=== PATIENT | female | born 1955 | race Caucasian/White ===

== ENCOUNTER 2017-12-05 15:11 | Observation (INO) | payer MEDICARE, OTHER ==
[2017-12-05] MEDS ORDERED: SODIUM CHLORIDE 0.9% 1,000 ML IV STA (15:55)
[2017-12-05] MEDS ORDERED: LORazepam 2 MG/ML INJ IV PRN ×2 (15:55)
[2017-12-05] MEDS ORDERED: SODIUM CHLORIDE 0.9% 1,000 ML with MVI, ADULT NO.4 WITH VIT K 10 ML, THIAMINE 100 MG, F... IV ONE ×4 (15:56)
--- NOTE | 2017-12-05 16:02 | ED ---
General Adult HPI <Zane Alamo - Last Filed: 12/05/17 17:22> - General Source: patient, family, RN notes reviewed Mode of arrival: wheelchair Limitations: no limitations <Cm Yadav - Last Filed: 12/05/17 17:28> - General Chief complaint: Psychiatric Symptoms Stated complaint: ETOH Time Seen by Provider: 12/05/17 15:42 - History of Present Illness Initial comments: Patient 62-year-old female presenting to the emergency room today with a chief complaint of suicidal ideation. Patient does admit that she was drinking earlier today. She admits to being a daily drinker. Patient states that she was set after seeing her mother here in the hospital. Patient has had thoughts of hurting herself. States that she thought about taking pills. Patient denies any homicidal thoughts or plans. Denies any other physical complaints. Patient denies any recent fever, chills, shortness of breath, chest pain, back pain, abdominal pain, nausea or vomiting, headaches or visual changes, or any other complaints. (Cm Yadav) - Related Data Home Medications Medication Instructions Recorded Confirmed Unable To Assess [Unable to Assess] 08/31/15 12/05/17 Allergies Allergy/AdvReac Type Severity Reaction Status Date / Time No Known Allergies Allergy Verified 12/05/17 15:20 Review of Systems ROS Other: All systems not noted in ROS Statement are negative. <Zane Alamo - Last Filed: 12/05/17 17:22> ROS Other: All systems not noted in ROS Statement are negative. <Cm Yadav - Last Filed: 12/05/17 17:28> ROS Statement: Those systems with pertinent positive or pertinent negative responses have been documented in the HPI. Past Medical History Past Medical History: Coronary Artery Disease (CAD), Diabetes Mellitus, Thyroid Disorder Additional Past Medical History / Comment(s): Pancreatitits History of Any Multi-Drug Resistant Organisms: None Reported Past Surgical History: Coronary Bypass/CABG, Hysterectomy Past Psychological History: Anxiety, Depression Smoking Status: Current some day smoker Past Alcohol Use History: Abuse, Daily Past Drug Use History: None Reported <Cm Yadav - Last Filed: 12/05/17 17:28> General Exam <Zane Alamo - Last Filed: 12/05/17 17:22> Limitations: no limitations <Cm Yadav - Last Filed: 12/05/17 17:28> - General Exam Comments Initial Comments: General: The patient is awake and alert, in no distress, and does not appear acutely ill. Intoxicated. Eye: Pupils are equal, round and reactive to light, extra-ocular movements are intact. No nystagmus. There is normal conjunctiva bilaterally. No signs of icterus. Ears, nose, mouth and throat: There are moist mucous membranes and no oral lesions. Neck: The neck is supple, there is no tenderness or JVD. Cardiovascular: There is a regular rate and rhythm. No murmur, rub or gallop is appreciated. Respiratory: Lungs are clear to auscultation, respirations are non-labored, breath sounds are equal. No wheezes, stridor, rales, or rhonchi. Gastrointestinal: Soft, non-distended, non-tender abdomen without masses or organomegaly noted. There is no rebound or guarding present. No CVA tenderness. Musculoskeletal: Normal ROM, no tenderness. Sensation intact. Pulses equal bilaterally 2+. Neurological: A&O x 3. CN II-XII intact, There are no obvious motor or sensory deficits. Coordination appears grossly intact. Speech is normal. Skin: Skin is warm and dry and no rashes or lesions are noted. Psychiatric: Cooperative. Intoxicated. (Cm Yadav) Course <Zane Alamo - Last Filed: 12/05/17 17:22> <Cm Yadav - Last Filed: 12/05/17 17:28> Vital Signs 12/05/17 15:18 Temperature 98.3 F Pulse Rate 90 Respiratory 18 Rate Blood Pressure 93/60 O2 Sat by Pulse 94 L Oximetry - Reevaluation(s) Reevaluation #1: 12/05/17 17:22 PA supervision: I personally saw and examined the patient I reviewed and agree with the PA findings including all diagnostic interpretations and treatment plans is written unless otherwise stated I did discuss the case with Dr. English. (Zane Alamo) Medical Decision Making - Lab Data Result diagrams: 12/05/17 16:25 12/05/17 16:25 <Zane Alamo - Last Filed: 12/05/17 17:22> - Lab Data Result diagrams: 12/05/17 16:25 12/05/17 16:25 <Cm Yadav - Last Filed: 12/05/17 17:28> - Medical Decision Making Patient's labs been reviewed. Patient's alcohol level 371. Patient does have elevated liver enzymes. Patient will be admitted to hospital for alcohol withdrawal and for suicidal ideation consult psychiatry. (Cm Yadav) - Lab Data Lab Results 12/05/17 12/05/17 12/05/17 Range/Units 16:25 16:25 16:25 WBC 7.7 (3.8-10.6) k/uL RBC 3.81 (3.80-5.40) m/uL Hgb 10.7 L (11.4-16.0) gm/dL Hct 32.9 L (34.0-46.0) % MCV 86.4 (80.0-100.0) fL MCH 28.1 (25.0-35.0) pg MCHC 32.6 (31.0-37.0) g/dL RDW 17.0 H (11.5-15.5) % Plt Count 156 (150-450) k/uL Neutrophils % 57 % Lymphocytes % 34 % Monocytes % 4 % Eosinophils % 2 % Basophils % 1 % Neutrophils # 4.4 (1.3-7.7) k/uL Lymphocytes # 2.7 (1.0-4.8) k/uL Monocytes # 0.3 (0-1.0) k/uL Eosinophils # 0.2 (0-0.7) k/uL Basophils # 0.1 (0-0.2) k/uL Anisocytosis Slight PT 10.8 (9.0-12.0) sec INR 1.1 (<1.2) APTT 23.8 (22.0-30.0) sec Sodium 141 (137-145) mmol/L Potassium 4.1 (3.5-5.1) mmol/L Chloride 103 (98-107) mmol/L Carbon Dioxide 18 L (22-30) mmol/L Anion Gap 20 mmol/L BUN 23 H (7-17) mg/dL Creatinine 1.30 H (0.52-1.04) mg/dL Est GFR (CKD-EPI)AfAm 50 (>60 ml/min/1.73 sqM) Est GFR (CKD-EPI)NonAf 44 (>60 ml/min/1.73 sqM) Glucose 147 H (74-99) mg/dL Calcium 10.3 H (8.4-10.2) mg/dL Total Bilirubin 0.7 (0.2-1.3) mg/dL AST 154 H (14-36) U/L ALT 98 H (9-52) U/L Alkaline Phosphatase 130 H (38-126) U/L Total Protein 7.8 (6.3-8.2) g/dL Albumin 4.9 (3.5-5.0) g/dL Lipase 312 H (23-300) U/L Serum Alcohol 371 mg/dL Disposition <Zane Alamo - Last Filed: 12/05/17 17:22> Is patient prescribed a controlled substance at d/c from ED?: No Time of Disposition: 17:04 <Cm Yadav - Last Filed: 12/05/17 17:28> Clinical Impression: Suicidal ideation, Alcohol withdrawal Disposition: ADMITTED IP TO THIS HOSP Condition: Stable Referrals: Jaci Lloyd MD [Primary Care Provider] - 1-2 days
[2017-12-05 16:36] LABS: Anisocytosis Slight; Basophils # (A) 0.1 k/uL (0-0.2); Basophils % (A) 1 %; Eosinophils # (A) 0.2 k/uL (0-0.7); Eosinophils % (A) 2 %; HCT 32.9 % (34.0-46.0); HGB 10.7 gm/dL (11.4-16.0); Lymphocytes # (A) 2.7 k/uL (1.0-4.8); Lymphocytes % (A) 34 %; MCH 28.1 pg (25.0-35.0); MCHC 32.6 g/dL (31.0-37.0); MCV 86.4 fL (80.0-100.0); Mean Platelet Volume 7.6; Monocytes # (A) 0.3 k/uL (0-1.0); Monocytes % (A) 4 %; Neutrophils # (A) 4.4 k/uL (1.3-7.7); Neutrophils % (A) 57 %; Platelet Count 156 k/uL (150-450); RBC 3.81 m/uL (3.80-5.40); WBC 7.7 k/uL (3.8-10.6)
[2017-12-05 16:41] LABS: INR 1.1 (<1.2); Partial Thromboplastin Time 23.8 sec (22.0-30.0); Prothrombin Time 10.8 sec (9.0-12.0)
[2017-12-05 16:42] LABS: Albumin 4.9 g/dL (3.5-5.0); Calcium 10.3 mg/dL (8.4-10.2); Potassium 4.1 mmol/L (3.5-5.1); Total Bilirubin 0.7 mg/dL (0.2-1.3); Total Protein 7.8 g/dL (6.3-8.2)
[2017-12-05] MEDS ORDERED: ACETAMINOPHEN TAB 325 MG TAB PO PRN (17:28)
[2017-12-05] MEDS ORDERED: ONDANSETRON 4 MG/2 ML VIAL IVP PRN (17:28)
[2017-12-05] MEDS ORDERED: NALOXONE 0.4 MG/ML 1 ML VIAL IV PRN (17:28)
[2017-12-05 18:56] VITALS: BMI 28.4
[2017-12-05] MEDS: THIAMINE 100 MG TAB PO SCH (18:58)
[2017-12-05 20:38] LABS: Glucose,Whole Blood 176 mg/dL (75-99)
[2017-12-05 20:53] LABS: Appearance,Urine Clear (Clear); Bilirubin,Urine Negative (Negative); Blood,Urine Negative (Negative); Color,Urine Light Yellow; Glucose,Urine (UA) Negative (Negative); Ketones,Urine Negative (Negative); Leukocyte Esterase,Urine Negative (Negative); Nitrite,Urine Negative (Negative); Protein,Urine Negative (Negative); Specific Gravity,Urine 1.003 (1.001-1.035); Urobilinogen,Urine <2.0 mg/dL (<2.0)
[2017-12-05] MEDS: LORazepam 2 MG/ML INJ IV PRN (21:53)
[2017-12-06] MEDS: LORazepam 2 MG/ML INJ IV PRN ×4 (01:15→22:49)
[2017-12-06 07:11] LABS: Glucose,Whole Blood 206 mg/dL (75-99)
[2017-12-06] MEDS: THIAMINE 100 MG TAB PO SCH ×2 (11:32→16:25)
--- NOTE | 2017-12-06 15:05 | P.HPIM ---
History of Present Illness H&P Date: 12/06/17 Darlene Lopez is a 62-year-old female who presented to [facility] emergency room with a chief complaint of suicidal ideation. Patient stated that she was upset because her mother was in the hospital. She stated that she was drinking alcohol. She admits that she is an alcoholic, she started having some suicidal ideation and she thought about taking a bunch of pills but decided instead to come to emergency room to ask for help. She was evaluated in emergency room her alcohol level was significantly elevated she was admitted to medical floor and psychiatry consultation was requested. She was started on the CIWA protocol. Patient was seen and evaluated on 12/06/2017, she is alert and oriented 3 there is no evidence of agitation or tremors at this time she stated that she was thinking of committing suicide due to drinking a lot of alcohol. She admits that she is an alcoholic and is willing to accept help. She denies any other symptoms at this time, she denies thinking of committing suicide at this time, she denies having any fever or chills no headache or dizziness no chest pain no shortness of breath no cough no nausea or vomiting no abdominal pain no diarrhea no burning with urination no frequency or urgency and no hematuria. Past Medical History Past Medical History: Coronary Artery Disease (CAD), Diabetes Mellitus, Thyroid Disorder Additional Past Medical History / Comment(s): Pancreatitits History of Any Multi-Drug Resistant Organisms: None Reported Past Surgical History: Coronary Bypass/CABG, Hysterectomy Past Psychological History: Anxiety, Depression Smoking Status: Former smoker Past Alcohol Use History: Abuse, Daily Past Drug Use History: None Reported - Past Family History Mother Family Medical History: Dementia Medications and Allergies Home Medications Medication Instructions Recorded Confirmed Type Allopurinol [Zyloprim] 300 mg PO DAILY 12/06/17 12/06/17 History Escitalopram [Lexapro] 20 mg PO DAILY 12/06/17 12/06/17 History Fenofibrate Nanocrystallized 145 mg PO DAILY 12/06/17 12/06/17 History [Fenofibrate] Omeprazole [PriLOSEC] 20 mg PO AC-BRKFST 12/06/17 12/06/17 History metFORMIN HCL [Glucophage] 500 mg PO BID 12/06/17 12/06/17 History Allergies Allergy/AdvReac Type Severity Reaction Status Date / Time No Known Allergies Allergy Verified 12/05/17 17:32 Physical Exam Vitals: Vital Signs Temp Pulse Pulse Resp BP BP Pulse Ox 12/06/17 06:46 98.2 F 105 H 16 165/72 96 12/05/17 23:00 99.5 F 101 H 20 114/48 91 L 12/05/17 17:57 98.7 F 83 16 92/50 98 12/05/17 15:18 98.3 F 90 18 93/60 94 L Intake and Output 12/05/17 12/06/17 12/06/17 22:59 06:59 14:59 Intake Total 600 200 240 Output Total 1400 Balance -800 200 240 Intake: Oral 600 200 240 Output: Urine 1400 Other: # Voids 1 # Bowel Movements 1 Weight 77.5 kg In general patient is alert and oriented 3 in no apparent distress HEENT head normocephalic and atraumatic Neck is supple no JVD no goiter no lymphadenopathy Chest exam reveals a few scattered crackles no wheezing Cardiac exam reveals regular heart sounds no gallops no murmurs Abdomen is soft nontender no organomegaly with normal bowel sounds Extremity exam reveals no edema no cyanosis or clubbing Neurological examination reveals no gross focal deficit Results CBC & Chem 7: 12/05/17 16:25 12/05/17 16:25 Labs: Abnormal Lab Results - Last 24 Hours (Table) 12/05/17 12/05/17 12/05/17 Range/Units 16:25 16:25 20:28 Hgb 10.7 L (11.4-16.0) gm/dL Hct 32.9 L (34.0-46.0) % RDW 17.0 H (11.5-15.5) % Carbon Dioxide 18 L (22-30) mmol/L BUN 23 H (7-17) mg/dL Creatinine 1.30 H (0.52-1.04) mg/dL Glucose 147 H (74-99) mg/dL POC Glucose (mg/dL) 176 H (75-99) mg/dL Calcium 10.3 H (8.4-10.2) mg/dL AST 154 H (14-36) U/L ALT 98 H (9-52) U/L Alkaline Phosphatase 130 H (38-126) U/L Lipase 312 H (23-300) U/L 12/06/17 Range/Units 06:51 Hgb (11.4-16.0) gm/dL Hct (34.0-46.0) % RDW (11.5-15.5) % Carbon Dioxide (22-30) mmol/L BUN (7-17) mg/dL Creatinine (0.52-1.04) mg/dL Glucose (74-99) mg/dL POC Glucose (mg/dL) 206 H (75-99) mg/dL Calcium (8.4-10.2) mg/dL AST (14-36) U/L ALT (9-52) U/L Alkaline Phosphatase (38-126) U/L Lipase (23-300) U/L Thrombosis Risk Factor Assmnt - Choose All That Apply Any of the Below Risk Factors Present?: Yes Each Factor Represents 1 point: Obesity (BMI >25) Other Risk Factors: Yes Each Risk Factor Represents 2 Points: Age 61-74 years Thrombosis Risk Factor Assessment Total Risk Factor Score: 3 Thrombosis Risk Factor Assessment Level: Moderate Risk Assessment and Plan Plan: #1 suicidal ideation #2 underlying history of ethanol abuse #3 underlying history of coronary artery disease #4 underlying history of diabetes mellitus #5 underlying history of hypothyroidism #6 previous history of acute pancreatitis in the past #7 tobacco abuse #8 underlying history of depression and anxiety At this time continue with current management continue Ativan awaiting psychiatry input Medication reviewed and reordered patient counseled in regard to alcohol and tobacco abuse
[2017-12-06] MEDS: FENOFIBRATE 160 MG TAB PO SCH (16:23)
[2017-12-06] MEDS: ALLOPURINOL 300 MG TAB PO SCH (16:23)
[2017-12-06] MEDS: ESCITALOPRAM 20 MG TAB PO SCH (16:23)
[2017-12-06 17:23] LABS: Glucose,Whole Blood 143 mg/dL (75-99)
[2017-12-06] MEDS: INSULIN ASPART 100 UNIT/ML 1 ML 10 ML VIAL SQ SCH ×2 (18:06→21:06)
--- NOTE | 2017-12-06 18:56 | CONS ---
CONSULTATION DATE OF SERVICE: 12/06/2017. IDENTIFYING DATA: This patient is a 62-year-old female who was admitted to the hospital after presenting acutely intoxicated with alcohol and making suicidal statements. HISTORY OF PRESENT ILLNESS: The patient was admitted to the medical floor as she presented with a serum alcohol level of 371 in the emergency room. Apparently, the patient had made statements of wanting to kill herself and that she could do it by overdosing. The patient is now sober and she states that she does not remember what she was saying yesterday and although she has been struggling with some depressive symptoms, states that she does not have any suicidal ideation, intent, or plan. She states that she could never do that to her family. She states that she has an alcohol problem and her excessive alcohol use makes her mood worse. She describes herself as being more tearful. Appetite is perfectly stable. Sleep has been stable. She endorses no hopeless thinking and does think that she made the right decisions her situation could improve. She is endorsing no significant anxiety symptoms. She endorses no history of hypomania or cheko. She is reporting no auditory or visual hallucinations or any specific delusions. She resides with her in their own home and she states they have no firearms at home. PAST PSYCHIATRIC HISTORY: She had 2 inpatient admissions that she states were alcohol related more than 15 years ago. She denies any history of suicide attempt or any type of self-injurious behavior. She is currently prescribed Lexapro 20 mg daily. She has been on this for quite some time, as prescribed by her primary care physician. She believes she may have been on Paxil in the past. PAST MEDICAL HISTORY: Coronary artery disease, status post CABG, diabetes, hypothyroidism, history of pancreatitis and gout. ALLERGIES: No known drug allergies. CHEMICAL DEPENDENCY HISTORY: She has been abusing alcohol in a binge drinking fashion for numerous years. She states that she often will go 3-4 days consuming excessive amount of alcohol. She states lately she has been drinking over a 5th of liquor. Her longest sobriety was approximately 3-4 months and that was 2 years ago. She denies any use of any other illicit drugs. She has never been placed in residential treatment for chemical dependency reasons. She states she cannot attend inpatient chemical dependency treatment as she provides partial care for her mother. SOCIAL HISTORY: The patient is 62 years old. She has been for over 20 years. She has no children. She lives with her . She is on a disability income. She previously was employed doing retail work and factory type work. She has an 8th grade education. No history of service. MENTAL STATUS EXAM: The patient is a female appearing her stated age. She is lying in bed. She is dressed in hospital attire. She is pleasant upon approach. She describes a depressed mood and feelings of embarrassment due to statements that she made last evening while intoxicated. She verbalizes that she knows she should stop drinking. She states that she has no suicidal or homicidal ideation, intent, or plan. She is reporting no auditory or visual hallucinations or any specific delusions. She demonstrates no tangential thinking, loose associations or flight of ideas. She does not appear hypomanic or manic. She is oriented to person, place, and date. She appropriately attends to the conversation. She demonstrates no verbal or physical aggressiveness and demonstrates no abnormal involuntary movements. Affect is congruent to reported mood. She is briefly tearful and then reconstitutes. IMPRESSIONS: 1. Major depressive disorder, recurrent, alcohol use disorder. 2. Medical comorbidities include coronary artery disease, diabetes, hypothyroidism, history of pancreatitis and gout. 3. Her is also excessively using alcohol. PLAN: The patient does not require inpatient psychiatric hospitalization. She no longer requires a product safety specialist here in the hospital. I would recommend that she attend inpatient chemical dependency treatment, but she states she is not able to do that due to other responsibilities. Secondarily, I would recommend that she attend an AA meeting daily and enrol in outpatient counseling at a clinic close to her residence [facility]. She will continue on her Lexapro 20 mg daily. We discussed that once she leaves the hospital she should abstain from all alcohol use as it will elevate her safety risk and possibly interfere with the efficacy of her Lexapro. She is instructed to return to the hospital with any acute safety concerns. MMODL / IJN: [id number] /
[2017-12-06 20:41] LABS: Glucose,Whole Blood 164 mg/dL (75-99)
[2017-12-07] MEDS: LORazepam 2 MG/ML INJ IV PRN ×2 (04:54→09:13)
[2017-12-07 07:30] LABS: Glucose,Whole Blood 167 mg/dL (75-99)
[2017-12-07] MEDS ORDERED: PANTOPRAZOLE 40 MG TABLET PO SCH (07:30)
[2017-12-07] MEDS: INSULIN ASPART 100 UNIT/ML 1 ML 10 ML VIAL SQ SCH ×2 (07:34→12:20)
[2017-12-07] MEDS: ALLOPURINOL 300 MG TAB PO SCH (07:34)
[2017-12-07] MEDS: FENOFIBRATE 160 MG TAB PO SCH (07:34)
[2017-12-07] MEDS: ESCITALOPRAM 20 MG TAB PO SCH (07:34)
[2017-12-07 08:38] VITALS: BP 148/95; PULSE 81; RESP 18; TEMP 97.1
[2017-12-07 08:53] LABS: Anisocytosis Slight; Basophils % (A) 1 %; Eosinophils # (A) 0.1 k/uL (0-0.7); Eosinophils % (A) 2 %; HCT 30.3 % (34.0-46.0); HGB 9.9 gm/dL (11.4-16.0); Hypochromasia Slight; Lymphocytes # (A) 1.4 k/uL (1.0-4.8); Lymphocytes % (A) 35 %; MCH 28.8 pg (25.0-35.0); MCHC 32.6 g/dL (31.0-37.0); MCV 88.4 fL (80.0-100.0); Mean Platelet Volume 7.6; Monocytes # (A) 0.2 k/uL (0-1.0); Monocytes % (A) 5 %; Neutrophils # (A) 2.2 k/uL (1.3-7.7); Neutrophils % (A) 56 %; Platelet Count 115 k/uL (150-450); RBC 3.42 m/uL (3.80-5.40); WBC 3.9 k/uL (3.8-10.6)
[2017-12-07] MEDS ORDERED: ESCITALOPRAM 20 MG TAB PO SCH (09:00)
[2017-12-07 09:05] LABS: ALT 65 U/L (9-52); AST 79 U/L (14-36); Albumin 4.4 g/dL (3.5-5.0); Alkaline Phosphatase 125 U/L (38-126); Anion Gap 15 mmol/L; Blood Urea Nitrogen 16 mg/dL (7-17); Carbon Dioxide 21 mmol/L (22-30); Chloride 104 mmol/L (98-107); Glucose 187 mg/dL (74-99); Potassium 4.3 mmol/L (3.5-5.1); Sodium 140 mmol/L (137-145); Total Protein 7.1 g/dL (6.3-8.2)
[2017-12-07 11:42] LABS: Glucose,Whole Blood 178 mg/dL (75-99)
[2017-12-07] MEDS: THIAMINE 100 MG TAB PO SCH (12:20)
--- NOTE | 2017-12-07 12:35 | P.DS ---
Providers Date of admission: 12/05/17 17:29 Attending physician: Yumi English Consults: 12/05/17 17:28 Consult Physician Stat Consulting Provider: Jesica Darnell Consult Reason/Comments: Suicidal ideation Do you want consulting provider notified?: Yes Primary care physician: Jaci Lloyd Hospital Course: Discharge diagnosis #1 suicidal ideation with major depressive disorder. Patient seen by psychiatry. The recommending patient to continue with her Lexapro 20 mg daily and to attend AA meetings daily. #2 underlying history of ethanol abuse #3 underlying history of coronary artery disease #4 underlying history of diabetes mellitus #5 underlying history of hypothyroidism #6 previous history of acute pancreatitis in the past #7 tobacco abuse #8 underlying history of depression and anxiety #9 nicotine dependence discussed smoking cessation for greater than 3 minutes #10 alcoholic hepatitis: LFTs are trending down. Recommend repeating CMP in 1 week. Discontinue fenofibrate. #11 acute kidney injury present on admission improved with IV fluids #12 anemia: Hemoglobin 9.9 at discharge. No evidence of active bleeding. Last colonoscopy less than 10 years ago patient reports been told she has hemorrhoids and diverticulosis. Patient reports that her hemorrhoids are not current actively bleeding. Recommend that she follows up with her PCP and repeat CBC in 1 week. Discharge diagnosis Darlene Lopez is a 62-year-old female who presented to [facility] emergency room with a chief complaint of suicidal ideation. Patient stated that she was upset because her mother was in the hospital. She stated that she was drinking alcohol. She admits that she is an alcoholic, she started having some suicidal ideation and she thought about taking a bunch of pills but decided instead to come to emergency room to ask for help. She was evaluated in emergency room her alcohol level was significantly elevated she was admitted to medical floor and psychiatry consultation was requested. She was started on the CIWA protocol. Patient was seen and evaluated on 12/06/2017, she is alert and oriented 3 there is no evidence of agitation or tremors at this time she stated that she was thinking of committing suicide due to drinking a lot of alcohol. She admits that she is an alcoholic and is willing to accept help. She denies any other symptoms at this time, she denies thinking of committing suicide at this time, she denies having any fever or chills no headache or dizziness no chest pain no shortness of breath no cough no nausea or vomiting no abdominal pain no diarrhea no burning with urination no frequency or urgency and no hematuria. Patient had elevated alcohol level on admission. She was placed on the CIWA protocol. She was seen by psychiatry. As stated above the recommending that she continues to Lexapro 20 mg daily and attend the AA meetings. Initially they recommended inpatient chemical dependency treatment the patient states that she is not able to do that due to other responsibilities. Psychiatry felt the patient did not require inpatient psychiatric hospitalization. Patient is now medically stable for discharge. Social work has given patient a list of contact information for AA meetings. Patient has been educated on alcohol and tobacco cessation. Patient will be discharged home with Ativan 3 day supply. Multivitamin and thiamine and Buck acid. I performed an examination of the patient and discussed their management with the physician Machine Repairer Maintenance. I have reviewed the Physician Machine Repairer Maintenance's notes and agree with the documented findings and plan of care Patient Condition at Discharge: Stable Plan - Discharge Summary New Discharge Prescriptions: New Folic Acid 1 mg PO DAILY #30 tablet LORazepam [Ativan] 0.5 mg PO TID PRN #9 tab PRN Reason: Anxiety Multivitamins, Thera [Multivitamin (formulary)] 1 tab PO DAILY #30 tablet Thiamine [Vitamin B-1] 100 mg PO DAILY #30 tab Continue metFORMIN HCL [Glucophage] 500 mg PO BID Omeprazole [PriLOSEC] 20 mg PO AC-BRKFST Escitalopram [Lexapro] 20 mg PO DAILY Allopurinol [Zyloprim] 300 mg PO DAILY Discontinued Fenofibrate Nanocrystallized [Fenofibrate] 145 mg PO DAILY Discharge Medication List Allopurinol [Zyloprim] 300 mg PO DAILY 12/06/17 [History] Escitalopram [Lexapro] 20 mg PO DAILY 12/06/17 [History] Omeprazole [PriLOSEC] 20 mg PO AC-BRKFST 12/06/17 [History] metFORMIN HCL [Glucophage] 500 mg PO BID 12/06/17 [History] Folic Acid 1 mg PO DAILY #30 tablet 12/07/17 [Rx] LORazepam [Ativan] 0.5 mg PO TID PRN #9 tab 12/07/17 [Rx] Multivitamins, Thera [Multivitamin (formulary)] 1 tab PO DAILY #30 tablet [Rx] Thiamine [Vitamin B-1] 100 mg PO DAILY #30 tab 12/07/17 [Rx] Follow up Appointment(s)/Referral(s): Jaci Lloyd MD [Primary Care Provider] - 3 Days Ambulatory/Diagnostic Orders: Complete Blood Count w/diff [LAB.AMB] Time Frame: 1 Week, Location: None Selected Comprehensive Metabolic Panel [LAB.AMB] Time Frame: 1 Week, Location: None Selected Activity/Diet/Wound Care/Special Instructions: Diet: low cholesterol Activity as tolerated No ETOH use Follow up with AA counseling Discharge Disposition: HOME SELF-CARE
== END 2017-12-07 14:47 | disposition home or self-care (01) ==
LOC: EC 15:11 → 4MS4W 17:29
PROVIDERS: ADMIT Internal Medicine; ATTEND Internal Medicine
DX: F10.239 Alcohol dependence with withdrawal, unspecified (principal); R45.851 Suicidal ideations; F33.9 Major depressive disorder, recurrent, unspecified; I25.10 Atherosclerotic heart disease of native coronary artery without angina pectoris; E11.9 Type 2 diabetes mellitus without complications; E03.9 Hypothyroidism, unspecified; M10.9 Gout, unspecified; F41.9 Anxiety disorder, unspecified; F17.200 Nicotine dependence, unspecified, uncomplicated; K70.10 Alcoholic hepatitis without ascites; N17.9 Acute kidney failure, unspecified; D64.9 Anemia, unspecified; Y90.8 Blood alcohol level of 240 mg/100 ml or more; Z95.1 Presence of aortocoronary bypass graft; Z79.899 Other long term (current) drug therapy; Z79.84 Long term (current) use of oral hypoglycemic drugs; E66.9 Obesity, unspecified; Z68.28 Body mass index [BMI] 28.0-28.9, adult
CPT/HCPCS: 36415; 80053; 80320; 81003; 83690; 85025; 85610; 85730; 96365; 96366; 96375; 96376; 99284

== ENCOUNTER 2017-12-08 00:05 | Emergency (ER) | payer MEDICARE ==
[2017-12-08 02:24] LABS: Appearance,Urine Clear (Clear); Bilirubin,Urine Negative (Negative); Blood,Urine Negative (Negative); Color,Urine Light Yellow; Glucose,Urine (UA) Trace (Negative); Ketones,Urine Negative (Negative); Leukocyte Esterase,Urine Negative (Negative); Nitrite,Urine Negative (Negative); PH, Urine 5.5 (5.0-8.0); Protein,Urine Negative (Negative); Specific Gravity,Urine 1.003 (1.001-1.035); Urobilinogen,Urine <2.0 mg/dL (<2.0)
[2017-12-08 02:28] LABS: Anisocytosis Slight; Basophils % (A) 0 %; Eosinophils # (A) 0.2 k/uL (0-0.7); Eosinophils % (A) 3 %; HGB 9.9 gm/dL (11.4-16.0); Lymphocytes # (A) 1.8 k/uL (1.0-4.8); Lymphocytes % (A) 39 %; MCH 28.6 pg (25.0-35.0); MCV 89.3 fL (80.0-100.0); Mean Platelet Volume 8.3; Monocytes # (A) 0.2 k/uL (0-1.0); Monocytes % (A) 4 %; Neutrophils # (A) 2.3 k/uL (1.3-7.7); Neutrophils % (A) 51 %; Platelet Count 102 k/uL (150-450); RBC 3.47 m/uL (3.80-5.40); RDW 17.2 % (11.5-15.5); WBC 4.6 k/uL (3.8-10.6)
[2017-12-08 02:36] LABS: Amphetamine Screen,Urine Not Detected (NotDetected); Barbiturate Screen,Urine Not Detected (NotDetected); Benzodiazepines Screen,Urine Detected (NotDetected); Cocaine Screen,Urine Not Detected (NotDetected); Methadone Screen, Urine Not Detected (NotDetected); Opiate Screen,Urine Not Detected (NotDetected); Oxycodone Screen, Urine Not Detected (NotDetected); Phencyclidine Screen,Urine Not Detected (NotDetected); Tricyclic Antidepressant,Urine Not Detected (NotDetected); Urn Cannabinoid Scrn Not Detected (NotDetected)
[2017-12-08 02:37] LABS: ALT 71 U/L (9-52); AST 113 U/L (14-36); Albumin 4.7 g/dL (3.5-5.0); Alkaline Phosphatase 121 U/L (38-126); Anion Gap 17 mmol/L; Blood Urea Nitrogen 12 mg/dL (7-17); Calcium 10.3 mg/dL (8.4-10.2); Carbon Dioxide 18 mmol/L (22-30); Chloride 106 mmol/L (98-107); Glucose 132 mg/dL (74-99); Sodium 141 mmol/L (137-145); Total Bilirubin 0.8 mg/dL (0.2-1.3); Total Protein 7.5 g/dL (6.3-8.2)
[2017-12-08 02:48] LABS: Alcohol 224 mg/dL; Potassium 4.6 mmol/L (3.5-5.1)
--- NOTE | 2017-12-08 03:07 | ED ---
Psych HPI - General Source: patient, family Mode of arrival: wheelchair <Parris Nicholas - Last Filed: 12/08/17 03:05> <Jose Pringle - Last Filed: 12/08/17 10:46> - General Chief Complaint: Alcohol Stated Complaint: Altered Mental Status Time Seen by Provider: 12/08/17 01:25 - History of Present Illness Initial Comments: 62-year-old female patient presents to the emergency department today with complaints of suicidal ideation. Patient has been brought her in because she was behaving abnormally. Patient did admit to drinking 1 pint of alcohol in addition to taking her new prescription of Ativan. When asked patient states she feels like she wants to due to being an alcoholic. States that she has been alcoholic since she was 15 years old and she is depressed because of this. She denies any active plan to take her life. She denies any hallucinations. She denies any falls or head injuries. Denies any chest pain, abdominal pain, nausea, vomiting, dizziness, or weakness. Denies any headache, blurred vision, double vision, or neck pain. (Parris Nicholas) - Related Data Home Medications Medication Instructions Recorded Confirmed Allopurinol [Zyloprim] 300 mg PO DAILY 12/06/17 12/08/17 Escitalopram [Lexapro] 20 mg PO DAILY 12/06/17 12/08/17 Omeprazole [PriLOSEC] 20 mg PO AC-BRKFST 12/06/17 12/08/17 metFORMIN HCL [Glucophage] 500 mg PO BID 12/06/17 12/08/17 Acetaminophen Tab [Tylenol Tab] 1,000 mg PO Q6HR 12/08/17 12/08/17 LORazepam [Ativan] 1 mg PO HS PRN 12/08/17 12/08/17 Metoprolol Tartrate [Lopressor] 50 mg PO DAILY 12/08/17 12/08/17 Multivitamins, Thera [Multivitamin 1 tab PO DAILY 12/08/17 12/08/17 (formulary)] Thiamine [Vitamin B-1] 100 mg PO DAILY 12/08/17 12/08/17 Previous Rx's Medication Instructions Recorded Folic Acid 1 mg PO DAILY #30 tablet 12/07/17 Allergies Allergy/AdvReac Type Severity Reaction Status Date / Time No Known Allergies Allergy Verified 12/08/17 07:47 Review of Systems ROS Other: All systems not noted in ROS Statement are negative. <Parris Nicholas - Last Filed: 12/08/17 03:05> ROS Other: All systems not noted in ROS Statement are negative. <PringleJose - Last Filed: 12/08/17 10:46> ROS Statement: Those systems with pertinent positive or pertinent negative responses have been documented in the HPI. Past Medical History Past Medical History: Coronary Artery Disease (CAD), Diabetes Mellitus, Thyroid Disorder Additional Past Medical History / Comment(s): Pancreatitits History of Any Multi-Drug Resistant Organisms: None Reported Past Surgical History: Coronary Bypass/CABG, Hysterectomy Past Psychological History: Anxiety, Depression Smoking Status: Former smoker Past Alcohol Use History: Abuse, Daily Past Drug Use History: None Reported - Past Family History Mother Family Medical History: Dementia <Parris Nicholas - Last Filed: 12/08/17 03:05> General Exam Limitations: no limitations General appearance: alert, in no apparent distress, appears intoxicated, other ( This is a well-developed, well-nourished adult female patient in no acute distress. Vital signs upon presentation are temperature 98.4F, pulse 94, respirations 18, blood pressure 148/83, pulse ox 97% on room air.) Eye exam: Present: normal appearance, PERRL, EOMI. Absent: scleral icterus, conjunctival injection, periorbital swelling ENT exam: Present: normal exam, normal oropharynx, mucous membranes moist Respiratory exam: Present: normal lung sounds bilaterally. Absent: respiratory distress, wheezes, rales, rhonchi, stridor Cardiovascular Exam: Present: regular rate, normal rhythm, normal heart sounds. Absent: systolic murmur, diastolic murmur, rubs, gallop, clicks GI/Abdominal exam: Present: soft, normal bowel sounds. Absent: distended, tenderness, guarding, rebound, rigid Neurological exam: Present: alert, oriented X3, CN II-XII intact Psychiatric exam: Present: normal affect, normal mood Skin exam: Present: warm, dry, intact, normal color. Absent: rash <Parris Nicholas - Last Filed: 12/08/17 03:05> Vital Signs 12/08/17 12/08/17 00:14 07:10 Temperature 98.4 F 98.5 F Pulse Rate 94 104 H Respiratory 18 16 Rate Blood Pressure 148/83 155/75 O2 Sat by Pulse 97 94 L Oximetry Medical Decision Making - Lab Data Result diagrams: 12/08/17 02:15 12/08/17 02:15 <Parris Nicholas - Last Filed: 12/08/17 03:05> - Lab Data Result diagrams: 12/08/17 02:15 12/08/17 02:15 <Jose Pringle - Last Filed: 12/08/17 10:46> - Medical Decision Making Patient was seen by mental health services who does provide patient for follow- up care and recommends discharge. Patient reevaluated by myself, Dr. Pringle. Patient sitting up in bed resting comfortably. Patient denies suicidal thoughts and does contract for safety. (Jose Pringle) - Lab Data Lab Results 12/08/17 12/08/17 12/08/17 Range/Units 02:15 02:15 02:15 WBC 4.6 (3.8-10.6) k/uL RBC 3.47 L (3.80-5.40) m/uL Hgb 9.9 L (11.4-16.0) gm/dL Hct 31.0 L (34.0-46.0) % MCV 89.3 (80.0-100.0) fL MCH 28.6 (25.0-35.0) pg MCHC 32.0 (31.0-37.0) g/dL RDW 17.2 H (11.5-15.5) % Plt Count 102 L (150-450) k/uL Neutrophils % 51 % Lymphocytes % 39 % Monocytes % 4 % Eosinophils % 3 % Basophils % 0 % Neutrophils # 2.3 (1.3-7.7) k/uL Lymphocytes # 1.8 (1.0-4.8) k/uL Monocytes # 0.2 (0-1.0) k/uL Eosinophils # 0.2 (0-0.7) k/uL Basophils # 0.0 (0-0.2) k/uL Anisocytosis Slight Sodium 141 (137-145) mmol/L Potassium 4.6 (3.5-5.1) mmol/L Chloride 106 (98-107) mmol/L Carbon Dioxide 18 L (22-30) mmol/L Anion Gap 17 mmol/L BUN 12 (7-17) mg/dL Creatinine 0.80 (0.52-1.04) mg/dL Est GFR (CKD-EPI)AfAm >90 (>60 ml/min/1.73 sqM) Est GFR (CKD-EPI)NonAf 78 (>60 ml/min/1.73 sqM) Glucose 132 H (74-99) mg/dL Calcium 10.3 H (8.4-10.2) mg/dL Total Bilirubin 0.8 (0.2-1.3) mg/dL AST 113 H (14-36) U/L ALT 71 H (9-52) U/L Alkaline Phosphatase 121 (38-126) U/L Total Protein 7.5 (6.3-8.2) g/dL Albumin 4.7 (3.5-5.0) g/dL Urine Color Light Yellow Urine Appearance Clear (Clear) Urine pH 5.5 (5.0-8.0) Ur Specific [place] 1.003 (1.001-1.035) Urine Protein Negative (Negative) Urine Glucose (UA) Trace H (Negative) Urine Ketones Negative (Negative) Urine Blood Negative (Negative) Urine Nitrite Negative (Negative) Urine Bilirubin Negative (Negative) Urine Urobilinogen <2.0 (<2.0) mg/dL Ur Leukocyte Esterase Negative (Negative) Urine Opiates Screen Not Detected (NotDetected) Ur Oxycodone Screen Not Detected (NotDetected) Urine Methadone Screen Not Detected (NotDetected) Ur Propoxyphene Screen Not Detected (NotDetected) Ur Barbiturates Screen Not Detected (NotDetected) U Tricyclic Antidepress Not Detected (NotDetected) Ur Phencyclidine Scrn Not Detected (NotDetected) Ur Amphetamines Screen Not Detected (NotDetected) U Methamphetamines Scrn Not Detected (NotDetected) U Benzodiazepines Scrn Detected H (NotDetected) Urine Cocaine Screen Not Detected (NotDetected) U Marijuana (THC) Screen Not Detected (NotDetected) Serum Alcohol 224 mg/dL Disposition <Parris Nicholas - Last Filed: 12/08/17 03:05> Is patient prescribed a controlled substance at d/c from ED?: No Time of Disposition: 10:46 <Jose Pringle - Last Filed: 12/08/17 10:46> Clinical Impression: Depression, Alcoholic intoxication Disposition: HOME SELF-CARE Condition: Stable Instructions: Alcohol Withdrawal (ED), Depression (ED) Additional Instructions: Please follow-up with mental health services as directed. Discontinue alcohol use. Return for thoughts of self-harm, worsening symptoms or other concerns. Referrals: Jaci Lloyd MD [Primary Care Provider] - 1-2 days Roger Hooks DO [Medical Doctor] - 1-2 days
[2017-12-08] MEDS ORDERED: LORazepam 1 MG TAB PO STA (04:00)
[2017-12-08 07:11] VITALS: PULSE 104; TEMP 98.5
[2017-12-08] MEDS ORDERED: ONDANSETRON ODT 4 MG TAB PO STA (08:51)
[2017-12-08 10:58] VITALS: BP 197/93; RESP 18
== END 2017-12-08 10:58 | disposition home or self-care (01) ==
LOC: EC 00:05
DX: F32.9 Major depressive disorder, single episode, unspecified (principal); F10.120 Alcohol abuse with intoxication, uncomplicated; F41.9 Anxiety disorder, unspecified; I25.10 Atherosclerotic heart disease of native coronary artery without angina pectoris; E11.9 Type 2 diabetes mellitus without complications; E07.9 Disorder of thyroid, unspecified; Z87.891 Personal history of nicotine dependence; Z95.1 Presence of aortocoronary bypass graft; Z90.710 Acquired absence of both cervix and uterus; Z79.84 Long term (current) use of oral hypoglycemic drugs; Z79.899 Other long term (current) drug therapy; Y90.7 Blood alcohol level of 200-239 mg/100 ml
CPT/HCPCS: 36415; 80053; 80306; 80320; 81003; 85025; 93005; 99285

== ENCOUNTER 2021-02-18 23:31 | Emergency (ER) | payer MEDICARE ==
[2021-02-18 23:39] VITALS: TEMP 98.3
[2021-02-19] MEDS ORDERED: LORazepam 2 MG/ML INJ IV STA (00:41)
[2021-02-19 00:45] LABS: Basophils # (A) 0.1 k/uL (0-0.2); Basophils % (A) 1 %; Eosinophils # (A) 0.2 k/uL (0-0.7); Eosinophils % (A) 2 %; HCT 38.1 % (34.0-46.0); HGB 12.2 gm/dL (11.4-16.0); Lymphocytes # (A) 2.9 k/uL (1.0-4.8); Lymphocytes % (A) 28 %; MCH 31.8 pg (25.0-35.0); MCV 99.4 fL (80.0-100.0); Macrocytosis Slight; Mean Platelet Volume 8.6; Monocytes # (A) 0.5 k/uL (0-1.0); Monocytes % (A) 5 %; Neutrophils # (A) 6.6 k/uL (1.3-7.7); Neutrophils % (A) 63 %; Platelet Count 189 k/uL (150-450); RBC 3.83 m/uL (3.80-5.40); RDW 15.5 % (11.5-15.5); WBC 10.5 k/uL (3.8-10.6)
--- NOTE | 2021-02-19 00:45 | XR ---
EXAMINATION TYPE: XR chest 2V DATE OF EXAM: 02/19/2021 COMPARISON: NONE HISTORY: Chest pain TECHNIQUE: 2 views FINDINGS: There are sternal wires. Heart size is normal. Costophrenic angles are clear. There are no hilar masses. Bony thorax is intact. IMPRESSION: No active cardiopulmonary disease. Normal heart.
--- NOTE | 2021-02-19 00:45 | ED ---
Chest Pain HPI - General Chief Complaint: Chest Pain Stated Complaint: Chest Pain Time Seen by Provider: 02/18/21 23:53 Source: patient, EMS Mode of arrival: EMS - History of Present Illness Initial Comments: This patient is a 65-year-old woman who presents to be evaluate for intermittent right sided chest pains. She states it started about 4 hours ago while she was watching television. The pains are somewhat brief lasting number of seconds. They are sharp. She does not seem to be able to relieve them or reliably reproduce them. No associated symptoms. Patient states she has had history of previous bypass surgery but the pains associated with that were more of the typical substernal pressure type. MD Complaint: chest pain Onset/Timin -: hour(s) Onset: during rest (Watching television) Pain Location: right chest Pain Radiation: none Severity: moderate Quality: sharp Consistency: intermittent Improves With: nothing Worsens With: nothing Treatments Prior to Arrival: none - Related Data Home Medications Medication Instructions Recorded Confirmed Escitalopram [Lexapro] 20 mg PO DAILY 12/06/17 12/08/17 Omeprazole [PriLOSEC] 20 mg PO AC-BRKFST 12/06/17 12/08/17 allopurinoL [Zyloprim] 300 mg PO DAILY 12/06/17 12/08/17 metFORMIN HCL [Glucophage] 500 mg PO BID 12/06/17 12/08/17 Acetaminophen Tab [Tylenol Tab] 1,000 mg PO Q6HR 12/08/17 12/08/17 LORazepam [Ativan] 1 mg PO HS PRN 12/08/17 12/08/17 Metoprolol Tartrate [Lopressor] 50 mg PO DAILY 12/08/17 12/08/17 Multivitamins, Thera [Multivitamin 1 tab PO DAILY 12/08/17 12/08/17 (formulary)] Thiamine [Vitamin B-1] 100 mg PO DAILY 12/08/17 12/08/17 Previous Rx's Medication Instructions Recorded Folic Acid 1 mg PO DAILY #30 tablet 12/07/17 Magnesium Oxide 400 mg PO DAILY #30 tablet 02/19/21 Allergies Allergy/AdvReac Type Severity Reaction Status Date / Time No Known Allergies Allergy Verified 12/08/17 07:47 Review of Systems ROS Statement: Those systems with pertinent positive or pertinent negative responses have been documented in the HPI. ROS Other: All systems not noted in ROS Statement are negative. Constitutional: Denies: fever, chills Respiratory: Denies: cough, dyspnea Cardiovascular: Reports: chest pain. Denies: palpitations, edema, syncope Gastrointestinal: Denies: abdominal pain, vomiting, diarrhea Genitourinary: Denies: dysuria, hematuria Musculoskeletal: Denies: back pain Skin: Denies: rash Neurological: Denies: headache, weakness Psychiatric: Reports: anxiety EKG Findings - EKG Comments: EKG Findings:: Possible old anterior infarct. - EKG Results: EKG: interpreted by ERMD, sinus rhythm (Rate 77 bpm), normal axis, normal ST/T Past Medical History Past Medical History: Coronary Artery Disease (CAD), Diabetes Mellitus, Hypertension, Thyroid Disorder Additional Past Medical History / Comment(s): Pancreatitits History of Any Multi-Drug Resistant Organisms: None Reported Past Surgical History: Coronary Bypass/CABG, Hysterectomy Past Psychological History: Anxiety, Depression Smoking Status: Former smoker Past Alcohol Use History: Abuse, Daily Past Drug Use History: None Reported - Past Family History Mother Family Medical History: Dementia General Exam General appearance: alert, in no apparent distress Head exam: Present: atraumatic, normocephalic Eye exam: Present: normal appearance. Absent: scleral icterus, conjunctival injection ENT exam: Present: normal oropharynx Neck exam: Present: normal inspection Respiratory exam: Present: normal lung sounds bilaterally. Absent: respiratory distress, wheezes, rales, rhonchi, stridor, chest wall tenderness, accessory muscle use Cardiovascular Exam: Present: regular rate, normal rhythm, normal heart sounds. Absent: systolic murmur, diastolic murmur, rubs, gallop GI/Abdominal exam: Present: soft. Absent: distended, tenderness, guarding, rebound, rigid Extremities exam: Present: normal inspection, normal capillary refill. Absent: pedal edema, calf tenderness Back exam: Present: normal inspection. Absent: CVA tenderness (R), CVA tenderness (L) Neurological exam: Present: alert Skin exam: Present: warm, dry, intact, normal color. Absent: rash Course Vital Signs 02/18/21 02/19/21 02/19/21 23:32 01:39 03:00 Temperature 98.3 F Pulse Rate 77 73 81 Respiratory 24 20 20 Rate Blood Pressure 156/78 123/65 129/62 O2 Sat by Pulse 91 L 96 95 Oximetry 02/19/21 04:28 Temperature Pulse Rate 81 Respiratory 20 Rate Blood Pressure 138/74 O2 Sat by Pulse 96 Oximetry Disposition Clinical Impression: Chest pain, Hypomagnesemia Disposition: HOME SELF-CARE Condition: Good Instructions (If sedation given, give patient instructions): Chest Pain (ED) Prescriptions: Magnesium Oxide 400 mg PO DAILY #30 tablet Is patient prescribed a controlled substance at d/c from ED?: No Referrals: Jaci Lloyd MD [Primary Care Provider] - 1-2 days
[2021-02-19 00:52] LABS: Albumin 4.3 g/dL (3.5-5.0); Calcium 10.3 mg/dL (8.4-10.2); Potassium 4.3 mmol/L (3.5-5.1); Total Bilirubin 0.7 mg/dL (0.2-1.3); Total Protein 7.4 g/dL (6.3-8.2)
[2021-02-19 00:55] LABS: Magnesium 0.9 mg/dL (1.6-2.3)
[2021-02-19] MEDS: MAGNESIUM SULFATE-D5W PMX 1 GM in DEXTROSE/WATER 1 100ML.BAG IVPB SCH ×2 (01:08→02:13)
[2021-02-19 06:15] VITALS: BP 141/87; PULSE 83; RESP 18
== END 2021-02-19 06:15 | disposition home or self-care (01) ==
LOC: EC 23:31
DX: R07.9 Chest pain, unspecified (principal); E83.42 Hypomagnesemia; E11.9 Type 2 diabetes mellitus without complications; I10 Essential (primary) hypertension; I25.10 Atherosclerotic heart disease of native coronary artery without angina pectoris; F32.9 Major depressive disorder, single episode, unspecified; F41.9 Anxiety disorder, unspecified; Z87.891 Personal history of nicotine dependence; Z79.84 Long term (current) use of oral hypoglycemic drugs; Z79.899 Other long term (current) drug therapy; Z95.5 Presence of coronary angioplasty implant and graft
CPT/HCPCS: 36415; 93005; 80053; 83735; 84484; 85025; 85610; 85730; 71046; 99285; 96365; 96375; J2060; J3475